=== PATIENT | female | born 1965 | race Caucasian/White ===

== ENCOUNTER 2021-03-29 12:51 | Outpatient (CLI) | payer MEDICAID, OTHER ==
[2021-03-29] MEDS ORDERED: OMEP-110 PO (13:36)
[2021-03-29] MEDS ORDERED: LISI2.5T12 PO (13:36)
[2021-03-29] MEDS ORDERED: DULA4.5P INJ (13:36)
[2021-03-29] MEDS ORDERED: ASPI81TA45 PO (13:36)
[2021-03-29] MEDS ORDERED: INSU100I34 SC (13:36)
[2021-03-29] MEDS ORDERED: LEVO100T5 PO (13:36)
[2021-03-29] MEDS ORDERED: ARIP10TA33 PO (13:36)
[2021-03-29] MEDS ORDERED: HYDR-3237 PO (13:36)
[2021-03-29] MEDS ORDERED: CALC1CAP8 PO (13:36)
[2021-03-29] MEDS ORDERED: ATOR10TA9 PO (13:36)
[2021-03-29] MEDS ORDERED: OXCA300T19 PO (13:36)
[2021-03-29] MEDS ORDERED: ONDA4TAB13 SL (13:36)
[2021-03-29] MEDS ORDERED: ERTU1TAB11 PO (13:36)
[2021-03-29] MEDS ORDERED: MULT-449 PO (13:36)
[2021-03-29] MEDS ORDERED: CARI3CAP PO (13:36)
[2021-03-29] MEDS ORDERED: GABA300C PO (13:36)
[2021-03-29] MEDS ORDERED: CHOL100011 PO (13:36)
[2021-03-29] MEDS ORDERED: INSU100I42 SC (13:36)
[2021-03-29 13:40] LABS: ALANINE AMINOTRANSFERASE 27 U/L (12-78); ALBUMIN 3.4 g/dL (3.4-5.0); ANION GAP 3 mmol/L (5-15); CALCIUM 9.8 mg/dL (8.5-10.1); CHLORIDE 108 mmol/L (98-107); CREATININE 0.81 mg/dL (0.55-1.02)
[2021-03-29 13:43] LABS: ALKALINE PHOSPHATASE 83 U/L (45-117); BILIRUBIN,TOTAL 0.4 mg/dL (0.2-1.0); TOTAL PROTEIN 6.9 g/dL (6.4-8.2)
== END 2021-03-29 23:59 | disposition home or self-care (01) ==
LOC: STAR 12:51
PROVIDERS: ATTEND Orthopaedic Surgery
DX: Z01.818 Encounter for other preprocedural examination (principal); G56.02 Carpal tunnel syndrome, left upper limb
CPT/HCPCS: 36415; 80053; 93005

== ENCOUNTER 2021-04-02 05:22 | Day surgery (SDC) | payer MEDICAID, OTHER ==
[~2021-04-02] VITALS: Ht 165.1 cm; Wt 132.2 kg
[~2021-04-02 05:22] MED LIST: ARIP10TA33 PO; ASPI81TA45 PO; ATOR10TA9 PO; CALC1CAP8 PO; CARI3CAP PO; CHOL100011 PO; DULA4.5P INJ; ERTU1TAB11 PO; GABA300C PO; HYDR-3237 PO; INSU100I34 SC; INSU100I42 SC; LEVO100T5 PO; LISI2.5T12 PO; MULT-449 PO; OMEP-110 PO; ONDA4TAB13 SL; OXCA300T19 PO
[2021-04-02] MEDS ORDERED: BUPIVACAINE/PF 0.5% ONE (06:10)
[2021-04-02] MEDS ORDERED: LIDOCAINE-MPF 1%, 5ML ONE (06:10)
[2021-04-02] MEDS ORDERED: CHLORHEXIDINE 15 ML UDC ONE (06:16)
[2021-04-02 06:30] VITALS: BP 125/75
[2021-04-02] MEDS ORDERED: LACTATED RINGERS 1,000 ML IV SCH (06:30)
[2021-04-02] MEDS ORDERED: CHLORHEXIDINE 15 ML UDC PO ONE (06:30)
[2021-04-02] MEDS ORDERED: MIDAZOLAM 1 MG/ML, 2ML ONE (06:59)
[2021-04-02] MEDS ORDERED: FENTANYL PF 100 MCG/2ML ONE (06:59)
[2021-04-02] MEDS ORDERED: FENTANYL PF 100 MCG/2ML IV PRN (07:30)
[2021-04-02] MEDS ORDERED: LABETALOL 5MG/ML, 20ML IV PRN (07:30)
[2021-04-02] MEDS ORDERED: PROMETHAZINE 25 MG/ML, 1ML IVPush PRN (07:30)
[2021-04-02] MEDS ORDERED: HYDROmorphone 1 MG/ML, 1ML INJ IVPush PRN (07:30)
[2021-04-02] MEDS ORDERED: HYDROcodone/APAP 7.5-325MG/15ML UDC PO PRN (07:30)
[2021-04-02] MEDS ORDERED: MIDAZOLAM 1 MG/ML, 2ML IV PRN (07:30)
== END 2021-04-02 08:30 | disposition home or self-care (01) ==
LOC: OUT 05:22
PROVIDERS: ATTEND Orthopaedic Surgery
DX: G56.02 Carpal tunnel syndrome, left upper limb (principal); I10 Essential (primary) hypertension; E11.9 Type 2 diabetes mellitus without complications; E78.5 Hyperlipidemia, unspecified; K21.9 Gastro-esophageal reflux disease without esophagitis; E66.01 Morbid (severe) obesity due to excess calories; Z20.822 Contact with and (suspected) exposure to COVID-19; Z79.890 Hormone replacement therapy; Z79.899 Other long term (current) drug therapy; Z88.0 Allergy status to penicillin; Z88.5 Allergy status to narcotic agent
CPT/HCPCS: 64721; 82962; 87635; J2250; J3010; J7120